=== PATIENT | female | born 1960 | race Caucasian/White ===

== ENCOUNTER 2018-03-24 08:41 | Inpatient (IN) | payer BC ==
[2018-03-24] MEDS: HIP PAIN COCKTAIL (CEFUROXIME) INJ ×2 (07:00→12:20)
[2018-03-24] MEDS: LACTATED RINGER'S 1,000 ML IV* ×2 (07:00→15:01)
[~2018-03-24 08:41] MED LIST: ROCURONIUM 50 MG INJ
[2018-03-24] MEDS: DEXAMETHASONE 4 MG/ML 1 ML INJ IV (09:53)
[2018-03-24] MEDS: ONDANSETRON 4 MG INJ IV ×4 (09:53→22:08)
[2018-03-24] MEDS: ACETAMINOPHEN 1000MG/100ML IV 100 ML IVPB (09:53)
[2018-03-24] MEDS: LANSOPRAZOLE 30 MG CAP PO (09:54)
[2018-03-24] MEDS: oxyCODONE (CR) 10 MG TAB [oxyCONTIN] PO (09:54)
[2018-03-24] MEDS: SOD CHLORIDE 0.9% 1,000 ML IV ×2 (10:45→19:40)
[2018-03-24] MEDS ORDERED: DIPHENHYDRAMINE 50 MG INJ IV ×2 (11:00→12:00)
[2018-03-24] MEDS ORDERED: MAGNESIUM HYDROXIDE 30ML CUP PO (11:00)
[2018-03-24] MEDS ORDERED: BETHANECHOL 25 MG TAB PO (11:00)
[2018-03-24] MEDS ORDERED: SENNA/DOCUSATE NA (8.6MG/50MG) TAB PO (11:00)
[2018-03-24] MEDS ORDERED: NA PHOSPHATE/BIPHOS 133 ML ENEMA PR (11:00)
[2018-03-24] MEDS ORDERED: NALOXONE (0.4 MG/ML) INJ IV (11:00)
[2018-03-24] MEDS ORDERED: oxyCODONE 5 MG TAB PO ×2 (11:00)
[2018-03-24] MEDS: CEFAZOLIN 1 GM/50 ML (PMX) 50 ML IVPB ×2 (11:00→14:25)
[2018-03-24] MEDS ORDERED: BISACODYL 10 MG SUPP PR (11:00)
[2018-03-24] MEDS ORDERED: morphine SULFATE/PF (10 MG/10 ML) INJ (11:05)
[2018-03-24] MEDS ORDERED: BUPIVACAINE 0.75%/DEXT (SPINAL) 2 ML INJ (11:05)
[2018-03-24] MEDS ORDERED: MIDAZOLAM 1 MG/ML 2 ML INJ (11:32)
[2018-03-24] MEDS ORDERED: SUGAMMADEX SODIUM 200 MG/2 ML VIAL IV (11:59)
[2018-03-24] MEDS ORDERED: ROCURONIUM 50 MG INJ (11:59)
[2018-03-24] MEDS ORDERED: SUCCINYLCHOLINE CHLORIDE 100 MG/5 ML SYG IV (11:59)
[2018-03-24] MEDS ORDERED: LIDOCAINE 100 MG SYRINGE (11:59)
[2018-03-24] MEDS ORDERED: PROPOFOL 20 ML (11:59)
[2018-03-24] MEDS ORDERED: CEFAZOLIN 1 GM INJ (11:59)
[2018-03-24] MEDS ORDERED: MEPERIDINE 25 MG INJ IV (12:00)
[2018-03-24] MEDS ORDERED: METOCLOPRAMIDE 10 MG INJ IV (12:00)
[2018-03-24] MEDS ORDERED: FENTAnyl 50 MCG/ML VIAL IV ×3 (12:00)
[2018-03-24] MEDS ORDERED: HYDROmorphONE 1 MG/5 ML IV SYRINGE IV ×3 (12:00)
[2018-03-24] MEDS ORDERED: ONDANSETRON 4 MG INJ IV (12:00)
[2018-03-24] MEDS: TRANEXAMIC ACID 1,000 MG in NS 100 ML PRE-OP X1 IVPB (12:04)
[2018-03-24] MEDS: POLYMYXIN B 500000 UNIT INJ (12:19)
[2018-03-24] MEDS: BACITRACIN 50000 UNITS INJ (12:19)
[2018-03-24] MEDS: GABAPENTIN 300 MG CAP PO ×2 (13:00→20:05)
[2018-03-24] MEDS ORDERED: GABAPENTIN 100 MG CAP PO (13:00)
[2018-03-24] MEDS: TRANEXAMIC ACID 1,000 MG in NS 100 ML INTRA-OP X1 IVPB (13:03)
[2018-03-24] MEDS: ASPIRIN (EC) 325 MG TAB PO ×2 (14:25→20:05)
[2018-03-24] MEDS: DOCUSATE SODIUM 100 MG CAP PO (14:25)
[2018-03-24] MEDS ORDERED: GABAPENTIN 300 MG CAP PO (16:00)
[2018-03-24] MEDS: ATORVASTATIN 40 MG TAB PO (20:05)
[2018-03-24] MEDS: oxyCODONE 5 MG TAB PO (22:52)
[2018-03-25] MEDS: CEFAZOLIN 1 GM/50 ML (PMX) 50 ML IVPB (02:20)
[2018-03-25] MEDS: ONDANSETRON 4 MG INJ IV (04:59)
[2018-03-25 05:11] LABS: ADD MAN DIFF? NO
[2018-03-25 05:17] LABS: BASOPHILS % 0.1 % (0.0-2.0); HEMATOCRIT 33.1 % (37.0-47.0); HEMOGLOBIN 10.5 g/dl (12.0-16.0); LYMPHOCYTES # 1.6 10^3/ul (0.8-2.9); LYMPHOCYTES % 12.8 % (15.0-51.0); MEAN CORPUSCULAR HEMOGLOBIN 31.3 pg (29.0-33.0); MEAN CORPUSCULAR HGB CONC 31.7 g/dl (32.0-37.0); MEAN CORPUSCULAR VOLUME 98.8 fl (82.0-101.0); MEAN PLATELET VOLUME 10.5 fl (7.4-10.4); MONOCYTE # 0.7 10^3/ul (0.3-0.9); MONOCYTES % 5.8 % (0.0-11.0); NEUTROPHIL # 10.2 10^3/ul (1.6-7.5); PLATELET COUNT 207 10^3/UL (140-415); RED BLOOD COUNT 3.35 10^6/ul (4.20-5.40); RED CELL DISTRIBUTION WIDTH 13.1 % (11.5-14.5)
[2018-03-25 05:17] LABS: WHITE BLOOD COUNT 12.6 10^3/ul (4.8-10.8)
[2018-03-25 05:44] LABS: ANION GAP 9 (8-16); BLOOD UREA NITROGEN 13 mg/dl (7-20); CALCIUM 8.4 mg/dl (8.4-10.2); CARBON DIOXIDE 26 mmol/L (21-31); CHLORIDE 109 mmol/L (97-110); CREATININE 0.72 mg/dl (0.44-1.00); GLUCOSE 116 mg/dl (70-220); POTASSIUM 4.9 mmol/L (3.5-5.1); SODIUM 139 mmol/L (135-144)
[2018-03-25] MEDS: oxyCODONE 5 MG TAB PO ×3 (07:55→17:29)
[2018-03-25] MEDS: CELECOXIB 200 MG CAP PO (08:59)
[2018-03-25] MEDS: VALSARTAN 160 MG TAB PO (08:59)
[2018-03-25] MEDS: ASPIRIN (EC) 325 MG TAB PO (08:59)
[2018-03-25] MEDS ORDERED: VALSARTAN 160 MG PO (09:00)
[2018-03-25] MEDS: GABAPENTIN 300 MG CAP PO ×2 (09:00→12:46)
[2018-03-25] MEDS: DOCUSATE SODIUM 100 MG CAP PO (09:00)
[2018-03-25] MEDS: FERROUS FUMARATE (SR) TAB PO (09:00)
[2018-03-25] MEDS: LORATADINE 10 MG TAB PO (09:00)
[2018-03-25] MEDS: CHLORTHALIDONE 25 MG TAB PO (09:00)
[2018-03-25 09:49] LABS: ADD UMIC NO; UR ASCORBIC ACID 40 mg/dL (NEGATIVE); UR BILIRUBIN (Dip) NEGATIVE (NEGATIVE); UR BLOOD (Dip) NEGATIVE (NEGATIVE); UR CLARITY CLEAR (CLEAR); UR COLOR YELLOW (YELLOW); UR GLUCOSE (Dip) NEGATIVE (NEGATIVE); UR KETONES (Dip) NEGATIVE (NEGATIVE); UR LEUKOCYTE ESTERASE (Dip) NEGATIVE Leu/ul (NEGATIVE); UR NITRITE (Dip) NEGATIVE (NEGATIVE); UR TOTAL PROTEIN (Dip) NEGATIVE (NEGATIVE); UR UROBILINOGEN (Dip) NEGATIVE (NEGATIVE)
[2018-03-25] MEDS: KETOROLAC 15 MG INJ IV (09:53)
[2018-03-25] MEDS: SOD CHLORIDE 0.9% 1,000 ML IV (12:48)
[2018-03-26] MEDS ORDERED: PANTOPRAZOLE (EC) 40 MG TAB PO (06:00)
== END 2018-03-25 17:34 | disposition home health service (06) | DRG 470 ==
LOC: REC 08:41 → MS1 15:35
PROVIDERS: Orthopaedic Surgery Adult Reconstructive Orthopaedic Surgery
PROC: 0SRC069 Replacement of Right Knee Joint with Oxidized Zirconium on Polyethylene Synthetic Substitute, Cemented, Open Approach (ICD-10-PCS; principal; 2018-03-24 10:00)
DX: M17.11 Unilateral primary osteoarthritis, right knee (principal); I10 Essential (primary) hypertension; E66.9 Obesity, unspecified; Z68.37 Body mass index [BMI] 37.0-37.9, adult
CPT/HCPCS: 73560; 80048; 81003; 85025; 87081; 87086; 88304; 88311; 97110; 97116; 97161; 97165; 97530